=== PATIENT | female | born 1970 | race Caucasian/White ===

== ENCOUNTER 2020-04-12 02:17 | Outpatient (CLI) | payer BC, SELFPAY ==
[2020-04-12 18:39] LABS: SARS-CoV-2 RNA PCR Negative
== END 2020-04-12 02:18 | disposition home or self-care (01) ==
LOC: ANHCOVIDDT 02:17
PROVIDERS: Visit Provider Podiatrist Foot & Ankle Surgery
DX: Z01.812 Encounter for preprocedural laboratory examination (principal); Z20.828 Contact with and (suspected) exposure to other viral communicable diseases
CPT/HCPCS: 87635; C9803; U0003

== ENCOUNTER 2020-04-14 00:40 | Day surgery (SDC) | payer BC, SELFPAY ==
[2020-03-28 14:13] VITALS: BMI 26.4
[2020-04-14] VITALS (11 sets, daily range): BP systolic 105–130; BP diastolic 65–79; PULSE 68–82; RESP 8–18; TEMP 36.2–36.4; O2SAT 100
--- NOTE | ~2020-04-14 | XR_ITS ---
EXAMINATION: XR surgery orthopedic EXAM DATE: 04/14/2020 08:49 INDICATION: Arthroplasty left 1st metatarsal. TECHNIQUE: Fluoroscopy used during XR surgery orthopedic performed by Dr. Mario Callejas JR MD. The DAP for this procedure was 0.23 cGycm2. FINDINGS: There are 2 frontal images which were obtained portably during orthopedic left foot surger y. There may be some subcutaneous gas adjacent to the 1st metatarsophalangeal joint. No radiopaque fo reign bodies identified. Correlate with procedure note. IMPRESSION: Fluoroscopy used during XR surgery orthopedic. Reviewed, dictated and finalized at location B.
[2020-04-14] MEDS: LACTATED RINGERS 1,000 ML 30 ML IV CONT (06:29)
--- NOTE | 2020-04-14 06:58 | WPDANESEPPF ---
Anes - Initial Pre Proc Eval Procedure: Operation Date: 04/14/20 07:30 Proposed Procedures p Arthroplasty Left First Metatarsal Phalangeal Joint with Synthetic Cartilage Implant, - Mario Callejas JR, MD s Removal Ganglion Cyst Left Foot - Mario Callejas JR, MD Date/Time: 04/14/20 06:58 Surgeon: Mario Callejas JR, MD Pre Op Diagnosis: arthritis left 1st MPJ, ganglion cyst left foot Patient Data Age: 49 Gender: F Height: 5 ft 1 in Weight: 58.4 kg Last Vital Signs Temp 36.4 C L 04/14/20 06:32 Pulse 77 04/14/20 06:32 Resp 18 04/14/20 06:32 BP 121/74 04/14/20 06:32 Pulse Ox 100 04/14/20 06:32 Allergies Allergy/AdvReac Type Severity Reaction Status Date / Time No Known Allergies Allergy Verified 03/28/20 14:14 Home Medications Medication Instructions Recorded Confirmed Type biotin 1 tablet PO DAILY 03/28/20 03/28/20 History calcium carbonate [Calcium 600] 600 mg PO DAILY 03/28/20 03/28/20 History calcium polycarbophil [Fiber 625 mg PO DAILY 03/28/20 03/28/20 History Therapy (ca polycarboph)] multivitamin 1 tablet PO DAILY 03/28/20 03/28/20 History sodium oxybate [Xyrem] 5 mg PO HS 03/28/20 03/28/20 History venlafaxine [Effexor XR] 150 mg PO DAILY 04/14/20 04/14/20 History Patient hx anesthesia problems: none Family hx anesthesia problems: none [facility] Past Medical History Medical History Narcolepsy WILVER (obstructive sleep apnea) Social History Social History Smoking status: Never smoker Spiritual care concerns: No Anes - Eval Final PreProcedure Day of Procedure 04/14/20 06:58 Patient weight: normal Heart: regular rate and rhythm Lungs: clear to auscultation Airway: Mallampati scale class 1 Neurological: alert and oriented Last oral intake: >/= 8 hours ASA classification: III Emergent: no Anesthetic plan: proceed Anesthesia type and monitoring: general LMA and standard monitoring Informed Consent: The patient's anesthetic plan and its attendant risks and benefits were discussed with the patient/family/POA. Questions were solicited and answers provided to the satisfaction of the patient/family/POA.
--- NOTE | 2020-04-14 07:25 | WPDHPUPDATE1 ---
History and Physical Update Update Date/Time: 04/14/20 07:25 History and Physical has been reviewed, including an updated exam of the patient. There are NO changes in the patient's condition. Risks, benefits, and alternatives have been discussed and questions answered. Patient agrees to proceed with procedure.
[2020-04-14] MEDS: ceFAZolin 2 GM/D5W 50 ML 2 GM/50 ML BAG IVPB (07:30)
--- NOTE | 2020-04-14 09:01 | PM.OP ---
Procedure Note - Brief Procedure Note - Brief Date of procedure: 04/14/20 Pre-op diagnosis: arthritis left 1st MPJ, ganglion cyst left foot Post-op diagnosis: same Procedure performed: 1. Arthroplasty of the first metatarsal phlangeal joint of the left foot with synthetic cartilage inplant 2. Removal of ganglion cyst left foot Anesthesia: GLMA Surgeon: Mario Callejas JR, DPM Estimated blood loss (mL): 1 Complications: No immediate complications Condition: stable Disposition: same day
--- NOTE | 2020-04-14 10:16 | SUR.PHASEII ---
Patient has a knee scooter for none weight-bearing status to left foot.
--- NOTE | 2020-04-14 13:15 | SUR.PHASEII ---
Patient in outpatient (Phase 2) for so long because there was no discharge orders and Dr. Callejas was working in the OR on his next case.
--- NOTE | 2020-04-17 06:31 | OP_ITS ---
DATE OF PROCEDURE: 04/14/2020 PREOPERATIVE DIAGNOSES: 1. 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 2. Ganglion cyst, left foot. POSTOPERATIVE DIAGNOSES: 1. 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 2. Ganglion cyst, left foot. PROCEDURES: 1. Arthroplasty of the first metatarsophalangeal joint of the left foot with synthetic cartilage implant. 2. Removal of ganglion cyst, left foot. PATHOLOGY: Ganglion cyst from left foot sent for gross and histopathology. ANESTHESIA: General LMA with local. HEMOSTASIS: Pneumatic ankle tourniquet at 250 mmHg. ESTIMATED BLOOD LOSS: Minimal. MATERIALS USED: 1 [employer] Cartiva 8 mm implant, 3-0 PDS, 4-0 Vicryl and 4-0 Monocryl. INJECTABLES: 20 cc of Exparel injected preoperatively. COMPLICATIONS: None. PROCEDURE IN DETAIL: Under mild sedation, the patient was brought into the operating room, placed on the operating table in the supine position. Pneumatic ankle tourniquet was placed about the patient's left ankle. Following general anesthesia, local anesthesia was obtained about the left foot utilizing 20 cc of Exparel utilizing a Mcqueen block along the proximal aspect of the first metatarsal. The foot was then scrubbed, prepped, and draped in the usual aseptic manner. An Esmarch bandage was then used to examine the patient's left foot and pneumatic ankle tourniquet was then inflated. Surgery began in the following manner. Attention was directed to the dorsal aspect of the first metatarsophalangeal joint of the left foot where a 6 cm longitudinal incision was made just medial to the extensor hallucis longus tendon. Incision was continued deep down through subcutaneous tissues using sharp and blunt dissection. All bleeders were ligated and cauterized as necessary. At this point, a ganglion cyst was noted along the dorsal aspect of the first metatarsophalangeal joint. It was dissected down to the level of the capsule overlying the first metatarsophalangeal joint. The entire lesion was excised in toto and was sent for gross and histopathology. I did cauterize the stalk of the lesion, as it emanated from the first metatarsophalangeal joint. Next, just medial to the excision site to the first metatarsophalangeal joint ganglion cyst, a full length periosteal and capsular incision were made. The head of the first metatarsal as well as the base of the proximal phalanx was visualized. There was a dorsal prominence located along the dorsal first metatarsal. This was resected utilizing a sagittal bone saw. Next, a rotary power bur were used to resect any hypertrophy to the base of the proximal phalanx as well as the head of the first metatarsal dorsally, medially and laterally. At this point, the periosteal and capsular structures were freed from the base of the proximal phalanx and head of the first metatarsal medially and laterally and also inferiorly. Next, the hallux was flexed exposing the entire head of the first metatarsal and the base of the proximal phalanx. The head of the first metatarsal was noted to have a central ridge present that was abnormal. There was also significant denudation present along the dorsal, medial and lateral aspects of the first metatarsophalangeal joint with a small focal defect present slightly central and lateral on the head of the first metatarsal. At this point, utilizing standard principles and techniques for the [employer] cartilage synthetic implant, a K-wire was placed within the central aspect of the first metatarsal, encompassing the focal lesion, the 8 mm DentLight template was chosen. After the guidewire was driven through the head of the first metatarsal, the provided
== END 2020-04-14 11:55 | disposition home or self-care (01) ==
PROVIDERS: PCP Internal Medicine; Visit Provider Podiatrist Foot & Ankle Surgery
PROC: (CPT 28291; principal; 2020-04-14 07:30)
PROC: (CPT 28291; 2020-04-14 07:30)
DX: M20.5X2 Other deformities of toe(s) (acquired), left foot (principal); M19.072 Primary osteoarthritis, left ankle and foot; M67.472 Ganglion, left ankle and foot; G47.419 Narcolepsy without cataplexy; G47.33 Obstructive sleep apnea (adult) (pediatric)
CPT/HCPCS: 28291; 88304; 88305; C9290; J0690; J1100; J2250; J2405; J2704; J3010; J7120